=== PATIENT | female | born 1935 | race Caucasian/White ===

== ENCOUNTER 2021-04-07 22:05 | Inpatient (IN) ==
[2021-04-08 00:38] LABS: Basophils # 0.1 K/mcL (0.0-0.2); Basophils % 0.8 %; Eosinophils # 0.4 K/mcL (0.0-0.6); Hematocrit 30.6 % (35.3-44.9); Hemoglobin 9.1 g/dL (11.5-15.4); Immature Granulocytes % 1.2 % (0-4); Lymphocytes % 13.7 %; Mean Corpuscular HGB Conc 29.7 g/dL (31.6-35.5); Mean Corpuscular Hemoglobin 25.3 pg (28.0-33.3); Mean Platelet Volume 9.9 fL (9.4-12.4); Monocytes # 0.6 K/mcL (0.0-1.3); Monocytes % 8.3 %; Neutrophils # 5.3 K/mcL (1.6-8.9); Platelet Count 232 K/mcL (140-400); White Blood Count 7.4 K/mcL (4.3-11.1)
[2021-04-08 00:53] LABS: BUN/Creatinine Ratio 25 (6-26); Blood Urea Nitrogen 41 mg/dL (8-23); Calcium 8.6 mg/dL (8.6-10.3); Carbon Dioxide 31 mEq/L (23-29); Chloride 99 mEq/L (98-107); Glucose 174 mg/dL (70-105); Osmolality,Calculated 302 (280-300); Potassium 4.2 mEq/L (3.5-5.1); Sodium 139 mEq/L (136-145); Troponin I < 0.03 ng/mL (< 0.04); eGFR For African Americans 37 (> 60); eGFR For Non-African Americans 30 (> 60)
[2021-04-08] MEDS ORDERED: Ipratropium/Albuterol Neb 3 ML IH ONE (01:14)
[2021-04-08] MEDS ORDERED: Naloxone 0.4 MG/ML INJ IVP PRN (03:31)
[2021-04-08] MEDS ORDERED: Ondansetron 4 MG/2 ML VIAL IVP PRN (03:31)
[2021-04-08] MEDS ORDERED: Perflutren Lipid Microsphere 1.3 ML in 0.9 % Sodium Chloride 8.7 ML IVP PRN (03:34)
[2021-04-08] MEDS ORDERED: Dextrose Gel 15 GM/37.5 ML TUBE PO PRN ×2 (03:35)
[2021-04-08] MEDS ORDERED: D5% in Water 1,000 ML IVC PRN (03:35)
[2021-04-08] MEDS ORDERED: *HR* Dextrose 50 % in Water (Vial) 50 ML VIAL IVP PRN (03:35)
[2021-04-08] MEDS ORDERED: Ipratropium/Albuterol Neb 3 ML IH PRN (03:37)
[2021-04-08 04:57] LABS: Adenovirus Not Detected (Not Detect); Bordetella Pertussis Not Detected (Not Detect); Chlamydophila pneumoniae Not Detected (Not Detect); Coronavirus 229E Not Detected (Not Detect); Coronavirus HKU1 Not Detected (Not Detect); Coronavirus NL63 Not Detected (Not Detect); Coronavirus OC43 Not Detected (Not Detect); Human Metapneumovirus Not Detected (Not Detect); Human Rhinovirus/Enterovirus Not Detected (Not Detect); Influenza A Subtype 2009 H1 Not Detected (Not Detect); Influenza B Not Detected (Not Detect); Mycoplasma pneumoniae Not Detected (Not Detect); Parainfluenza Virus 1 Not Detected (Not Detect); Parainfluenza Virus 2 Not Detected (Not Detect); Parainfluenza Virus 3 Not Detected (Not Detect); Parainfluenza Virus 4 Not Detected (Not Detect); Respiratory Syncytial Virus Not Detected (Not Detect); SARS-CoV-2 Not Detected (Not Detect)
[2021-04-08 05:02] LABS: Basophils # 0.1 K/mcL (0.0-0.2); Basophils % 0.8 %; Eosinophils # 0.4 K/mcL (0.0-0.6); Eosinophils % 4.3 %; Hematocrit 31.4 % (35.3-44.9); Hemoglobin 9.4 g/dL (11.5-15.4); Immature Granulocytes % 1.4 % (0-4); Lymphocytes % 12.4 %; Mean Corpuscular HGB Conc 29.9 g/dL (31.6-35.5); Mean Corpuscular Hemoglobin 25.3 pg (28.0-33.3); Mean Corpuscular Volume 84.6 fL (83.0-100.0); Mean Platelet Volume 9.7 fL (9.4-12.4); Monocytes # 0.6 K/mcL (0.0-1.3); Monocytes % 7.4 %; Neutrophils # 6.1 K/mcL (1.6-8.9); Platelet Count 222 K/mcL (140-400); Red Blood Count 3.71 M/mcL (3.82-4.97); Red Cell Distribution Width 16.1 % (11.5-14.5); Segmented Neutrophils % 73.7 %; White Blood Count 8.3 K/mcL (4.3-11.1)
[2021-04-08 05:26] LABS: Albumin/Globulin Ratio 1.3 (1.1-2.2); Bilirubin,Total 0.3 mg/dL (0.3-1.0); Calcium 8.7 mg/dL (8.6-10.3); Chol/HDL Ratio 3.4 (0-4.9); Globulin 3.1 g/dL (2.4-3.5); Magnesium 2.2 mg/dL (1.6-2.6); Potassium 4.2 mEq/L (3.5-5.1); Total Protein 7.1 g/dL (6.4-8.9)
[2021-04-08 05:38] LABS: Thyroid Stimulating Hormone 2.608 mcIU/mL (0.340-5.600)
[2021-04-08] MEDS ORDERED: MethylPREDNISolone 40 MG/ML VIAL IVP SCH ×2 (08:00→18:00)
[2021-04-08] MEDS: Insulin LISPRO 300 UNITS/3 ML VIAL SUBQ SCH ×4 (08:28→20:55)
[2021-04-08] MEDS ORDERED: Iron Sucrose Complex 400 MG in 0.9 % Sodium Chloride 250 ML IVPB ONE (08:30)
[2021-04-08] MEDS ORDERED: Azithromycin 500 MG in 0.9 % Sodium Chloride 250 ML IVPB SCH (09:00)
[2021-04-08] MEDS ORDERED: cefTRIAXone 1,000 MG in 0.9 % Sodium Chloride Mini Bag 100 ML IVPB SCH (09:00)
[2021-04-08] MEDS ORDERED: Vancomycin 1,250 MG/262.5 ML IV.SOLN IVPB ONE (10:59)
[2021-04-08] MEDS: Apixaban 5 MG TABLET PO SCH ×2 (11:28→20:54)
[2021-04-08] MEDS ORDERED: Fluticasone Propionate Nasal 50 MCG/SPRAY BOTTLE NS PRN (11:29)
[2021-04-08] MEDS: GuaiFENesin/Dextromethorphan TABLET PO SCH ×2 (12:23→20:54)
[2021-04-08] MEDS: Furosemide 40 MG TABLET PO SCH (12:23)
[2021-04-08] MEDS: Cefepime HCl 1,000 MG in Water for inj. (sterile) 10 ML IVP SCH ×2 (12:31→20:56)
[2021-04-08] MEDS ORDERED: *HR* Amiodarone 200 MG TABLET PO SCH (12:45)
[2021-04-08] MEDS ORDERED: Isosorbide MONOnitrate (24 HR) 30 MG TAB.ER.24H PO SCH (12:45)
[2021-04-08] MEDS: Ipratropium/Albuterol Neb 3 ML IH SCH ×3 (15:34→22:23)
[2021-04-08] MEDS: Sacubitril/Valsartan 24/26 MG 1 TABLET PO SCH (20:54)
[2021-04-09 04:10] LABS: Basophils % 0.2 %; Hematocrit 28.7 % (35.3-44.9); Hemoglobin 8.8 g/dL (11.5-15.4); Immature Granulocytes % 1.7 % (0-4); Lymphocytes # 0.3 K/mcL (0.6-4.6); Mean Corpuscular HGB Conc 30.7 g/dL (31.6-35.5); Mean Corpuscular Hemoglobin 25.6 pg (28.0-33.3); Mean Corpuscular Volume 83.4 fL (83.0-100.0); Mean Platelet Volume 10.2 fL (9.4-12.4); Monocytes # 0.3 K/mcL (0.0-1.3); Monocytes % 2.3 %; Neutrophils # 10.7 K/mcL (1.6-8.9); Platelet Count 213 K/mcL (140-400); Red Blood Count 3.44 M/mcL (3.82-4.97); Red Cell Distribution Width 15.9 % (11.5-14.5); Segmented Neutrophils % 92.8 %; White Blood Count 11.5 K/mcL (4.3-11.1)
[2021-04-09] MEDS: Ipratropium/Albuterol Neb 3 ML IH SCH ×4 (04:26→22:39)
[2021-04-09 04:28] LABS: Calcium 8.5 mg/dL (8.6-10.3); Phosphorous 4.3 mg/dL (2.7-4.5); Potassium 4.2 mEq/L (3.5-5.1)
[2021-04-09] MEDS: tiZANidine 4 MG TABLET PO SCH (08:28)
[2021-04-09] MEDS: Apixaban 5 MG TABLET PO SCH ×2 (08:30→19:37)
[2021-04-09] MEDS: GuaiFENesin/Dextromethorphan TABLET PO SCH ×2 (08:32→19:37)
[2021-04-09] MEDS: Furosemide 40 MG TABLET PO SCH (08:32)
[2021-04-09] MEDS: Sacubitril/Valsartan 24/26 MG 1 TABLET PO SCH ×2 (08:33→19:37)
[2021-04-09] MEDS: Insulin LISPRO 300 UNITS/3 ML VIAL SUBQ SCH ×4 (08:34→19:39)
[2021-04-09] MEDS: predniSONE 20 MG TABLET PO SCH (08:57)
[2021-04-09 09:34] LABS: Hematocrit 29.1 % (35.3-44.9); Hemoglobin 8.8 g/dL (11.5-15.4)
[2021-04-09] MEDS: Cefepime HCl 1,000 MG in Water for inj. (sterile) 10 ML IVP SCH (10:30)
[2021-04-09] MEDS ORDERED: Furosemide 40 MG/4 ML VIAL IVP ONE (11:33)
[2021-04-09] MEDS ORDERED: Albumin 25% 25gram/100mL 25 GM/100 ML IV.SOLN IVPB ONE (11:33)
[2021-04-09] MEDS ORDERED: Vancomycin 1,250 MG/262.5 ML IV.SOLN IVPB SCH (13:00)
[2021-04-09] MEDS ORDERED: Furosemide 20 MG/2 ML VIAL IVP ONE (14:19)
[2021-04-09] MEDS: cephALEXin 500 MG CAPSULE PO SCH ×2 (14:19→19:38)
[2021-04-09 15:26] LABS: Estimated Average Glucose 174 mg/dl; Hemoglobin A1C 7.7 %
[2021-04-09] MEDS: Doxycycline 100 MG CAPSULE PO SCH (19:37)
[2021-04-10 00:51] LABS: Basophils % 0.2 %; Hematocrit 28.6 % (35.3-44.9); Hemoglobin 8.9 g/dL (11.5-15.4); Immature Granulocytes % 1.8 % (0-4); Lymphocytes # 0.4 K/mcL (0.6-4.6); Lymphocytes % 3.5 %; Mean Corpuscular HGB Conc 31.1 g/dL (31.6-35.5); Mean Corpuscular Hemoglobin 25.9 pg (28.0-33.3); Mean Corpuscular Volume 83.4 fL (83.0-100.0); Mean Platelet Volume 9.9 fL (9.4-12.4); Monocytes # 0.6 K/mcL (0.0-1.3); Neutrophils # 10.7 K/mcL (1.6-8.9); Platelet Count 221 K/mcL (140-400); Red Blood Count 3.43 M/mcL (3.82-4.97); Red Cell Distribution Width 16.5 % (11.5-14.5); Segmented Neutrophils % 89.5 %
[2021-04-10 01:09] LABS: Calcium 8.7 mg/dL (8.6-10.3); Magnesium 2.2 mg/dL (1.6-2.6); Phosphorous 5.1 mg/dL (2.7-4.5); Potassium 4.6 mEq/L (3.5-5.1)
[2021-04-10] MEDS: Ipratropium/Albuterol Neb 3 ML IH SCH ×4 (03:40→22:13)
[2021-04-10] MEDS ORDERED: Albumin 25% 25gram/100mL 25 GM/100 ML IV.SOLN IVPB SCH (07:00)
[2021-04-10] MEDS ORDERED: Furosemide 40 MG/4 ML VIAL IVP SCH (08:00)
[2021-04-10] MEDS: Doxycycline 100 MG CAPSULE PO SCH ×2 (08:35→19:43)
[2021-04-10] MEDS: predniSONE 20 MG TABLET PO SCH (08:35)
[2021-04-10] MEDS: cephALEXin 500 MG CAPSULE PO SCH ×3 (08:35→19:43)
[2021-04-10] MEDS: Sacubitril/Valsartan 24/26 MG 1 TABLET PO SCH ×2 (08:35→19:43)
[2021-04-10] MEDS: GuaiFENesin/Dextromethorphan TABLET PO SCH ×2 (08:35→19:42)
[2021-04-10] MEDS: tiZANidine 4 MG TABLET PO SCH (08:35)
[2021-04-10] MEDS: Apixaban 5 MG TABLET PO SCH ×2 (08:36→19:43)
[2021-04-10] MEDS: Insulin LISPRO 300 UNITS/3 ML VIAL SUBQ SCH ×4 (08:37→19:51)
[2021-04-10 17:13] LABS: Uric Acid 7.9 mg/dL (2.3-7.6)
[2021-04-11 02:11] LABS: Basophils % 0.1 %; Hematocrit 28.7 % (35.3-44.9); Hemoglobin 8.7 g/dL (11.5-15.4); Immature Granulocytes % 2.3 % (0-4); Lymphocytes # 0.3 K/mcL (0.6-4.6); Mean Corpuscular HGB Conc 30.3 g/dL (31.6-35.5); Mean Corpuscular Hemoglobin 25.9 pg (28.0-33.3); Mean Corpuscular Volume 85.4 fL (83.0-100.0); Monocytes # 0.6 K/mcL (0.0-1.3); Monocytes % 5.5 %; Neutrophils # 9.7 K/mcL (1.6-8.9); Platelet Count 204 K/mcL (140-400); Red Blood Count 3.36 M/mcL (3.82-4.97); Red Cell Distribution Width 16.6 % (11.5-14.5); Segmented Neutrophils % 89.1 %; White Blood Count 10.9 K/mcL (4.3-11.1)
[2021-04-11 02:24] LABS: Calcium 8.6 mg/dL (8.6-10.3)
[2021-04-11] MEDS: Ipratropium/Albuterol Neb 3 ML IH SCH ×4 (03:58→21:40)
[2021-04-11] MEDS: Insulin LISPRO 300 UNITS/3 ML VIAL SUBQ SCH ×4 (08:11→20:10)
[2021-04-11] MEDS: GuaiFENesin/Dextromethorphan TABLET PO SCH ×2 (08:11→20:10)
[2021-04-11] MEDS: Sacubitril/Valsartan 24/26 MG 1 TABLET PO SCH ×2 (08:11→20:11)
[2021-04-11] MEDS: Doxycycline 100 MG CAPSULE PO SCH ×2 (08:11→20:11)
[2021-04-11] MEDS: Apixaban 5 MG TABLET PO SCH ×2 (08:12→20:10)
[2021-04-11] MEDS: cephALEXin 500 MG CAPSULE PO SCH ×3 (08:12→20:11)
[2021-04-11] MEDS: predniSONE 20 MG TABLET PO SCH (08:13)
[2021-04-11] MEDS: tiZANidine 4 MG TABLET PO SCH (08:14)
[2021-04-11 10:00] LABS: Sodium, Urine 62.1 mEq/L
[2021-04-12 03:27] LABS: Basophils % 0.3 %; Hematocrit 29.3 % (35.3-44.9); Hemoglobin 8.9 g/dL (11.5-15.4); Immature Granulocytes % 3.9 % (0-4); Lymphocytes # 0.3 K/mcL (0.6-4.6); Lymphocytes % 2.6 %; Mean Corpuscular HGB Conc 30.4 g/dL (31.6-35.5); Mean Corpuscular Hemoglobin 25.9 pg (28.0-33.3); Mean Corpuscular Volume 85.4 fL (83.0-100.0); Mean Platelet Volume 10.6 fL (9.4-12.4); Monocytes # 0.8 K/mcL (0.0-1.3); Monocytes % 6.7 %; Neutrophils # 10.6 K/mcL (1.6-8.9); Platelet Count 234 K/mcL (140-400); Red Blood Count 3.43 M/mcL (3.82-4.97); Red Cell Distribution Width 16.7 % (11.5-14.5); Segmented Neutrophils % 86.5 %; White Blood Count 12.3 K/mcL (4.3-11.1)
[2021-04-12] MEDS: Ipratropium/Albuterol Neb 3 ML IH SCH ×4 (03:41→22:56)
[2021-04-12 03:45] LABS: Calcium 8.7 mg/dL (8.6-10.3); Potassium 5.3 mEq/L (3.5-5.1)
[2021-04-12] MEDS: GuaiFENesin/Dextromethorphan TABLET PO SCH ×2 (07:55→20:46)
[2021-04-12] MEDS: Apixaban 5 MG TABLET PO SCH ×2 (07:55→20:46)
[2021-04-12] MEDS: cephALEXin 500 MG CAPSULE PO SCH ×3 (07:55→20:46)
[2021-04-12] MEDS: Sacubitril/Valsartan 24/26 MG 1 TABLET PO SCH ×2 (07:55→20:46)
[2021-04-12] MEDS: Insulin LISPRO 300 UNITS/3 ML VIAL SUBQ SCH ×4 (07:55→20:49)
[2021-04-12] MEDS: Doxycycline 100 MG CAPSULE PO SCH ×2 (07:55→20:45)
[2021-04-12] MEDS: tiZANidine 4 MG TABLET PO SCH (07:56)
[2021-04-12] MEDS: predniSONE 20 MG TABLET PO SCH (07:56)
[2021-04-12 11:39] LABS: Bilirubin,Urine Negative (Negative); Blood,Urine Negative (Negative); Clarity,Urine Clear (Clear); Color,Urine Colorless (Yellow); Glucose,Urine (UA) 50 mg/dL (Normal); Ketones,Urine Negative (Negative); Leukocyte Esterase,Urine Trace (Negative); Nitrite,Urine Negative (Negative); Protein,Urine Trace mg/dL (Neg-Trace); RBC,Urine 0-3 per hpf (0-3); Specific Gravity,Urine 1.015 (1.010-1.025); Squamous Epithelial Cell,Urine Few per hpf (None-Few); Urobilinogen,Urine Normal (Normal); WBC,Urine 0-3 per hpf (0-3)
[2021-04-12] MEDS: Acetaminophen 325 MG TABLET PO PRN (19:02)
[2021-04-13] MEDS: Ipratropium/Albuterol Neb 3 ML IH SCH ×4 (03:43→22:59)
[2021-04-13] MEDS: Acetaminophen 325 MG TABLET PO PRN (05:05)
[2021-04-13] MEDS: Apixaban 5 MG TABLET PO SCH ×2 (07:13→19:49)
[2021-04-13] MEDS: tiZANidine 4 MG TABLET PO SCH (07:13)
[2021-04-13] MEDS: Doxycycline 100 MG CAPSULE PO SCH ×2 (07:13→19:48)
[2021-04-13] MEDS: GuaiFENesin/Dextromethorphan TABLET PO SCH ×2 (07:13→19:48)
[2021-04-13] MEDS: predniSONE 20 MG TABLET PO SCH (07:13)
[2021-04-13] MEDS: Sacubitril/Valsartan 24/26 MG 1 TABLET PO SCH ×2 (07:13→19:49)
[2021-04-13] MEDS: cephALEXin 500 MG CAPSULE PO SCH ×3 (07:13→19:48)
[2021-04-13] MEDS: Insulin LISPRO 300 UNITS/3 ML VIAL SUBQ SCH ×4 (07:14→19:54)
[2021-04-13 07:24] LABS: Basophils # 0.1 K/mcL (0.0-0.2); Basophils % 0.7 %; Eosinophils # 0.2 K/mcL (0.0-0.6); Eosinophils % 2.2 %; Hematocrit 30.1 % (35.3-44.9); Hemoglobin 8.9 g/dL (11.5-15.4); Immature Granulocytes % 4.5 % (0-4); Lymphocytes # 0.9 K/mcL (0.6-4.6); Lymphocytes % 8.3 %; Mean Corpuscular HGB Conc 29.6 g/dL (31.6-35.5); Mean Corpuscular Hemoglobin 25.4 pg (28.0-33.3); Mean Platelet Volume 10.4 fL (9.4-12.4); Monocytes # 0.9 K/mcL (0.0-1.3); Monocytes % 8.1 %; Platelet Count 213 K/mcL (140-400); Red Cell Distribution Width 16.8 % (11.5-14.5); Segmented Neutrophils % 76.2 %; White Blood Count 10.5 K/mcL (4.3-11.1)
[2021-04-13 07:43] LABS: Calcium 8.8 mg/dL (8.6-10.3); Potassium 5.2 mEq/L (3.5-5.1)
[2021-04-13] MEDS ORDERED: SODIUM ZIRCONIUM CYCLOSILICATE 5 GM POWD.PACK PO ONE ×2 (17:38→18:26)
[2021-04-14] MEDS: Ipratropium/Albuterol Neb 3 ML IH SCH ×2 (04:03→11:16)
[2021-04-14 07:12] LABS: Potassium 4.9 mEq/L (3.5-5.1)
[2021-04-14] MEDS: cephALEXin 500 MG CAPSULE PO SCH (07:44)
[2021-04-14] MEDS: Sacubitril/Valsartan 24/26 MG 1 TABLET PO SCH (07:44)
[2021-04-14] MEDS: Insulin LISPRO 300 UNITS/3 ML VIAL SUBQ SCH ×2 (07:44→11:48)
[2021-04-14] MEDS: GuaiFENesin/Dextromethorphan TABLET PO SCH (07:44)
[2021-04-14] MEDS: Apixaban 5 MG TABLET PO SCH (07:45)
[2021-04-14] MEDS: tiZANidine 4 MG TABLET PO SCH (07:45)
[2021-04-14] MEDS: predniSONE 20 MG TABLET PO SCH (07:45)
[2021-04-14] MEDS: Doxycycline 100 MG CAPSULE PO SCH (07:45)
[2021-04-14 08:04] LABS: Hematocrit 33.5 % (35.3-44.9); Mean Corpuscular HGB Conc 29.9 g/dL (31.6-35.5); Mean Corpuscular Hemoglobin 25.4 pg (28.0-33.3); Mean Platelet Volume 9.5 fL (9.4-12.4); Nucleated Red Blood Cells 0.2 /100 WBC (0); Platelet Count 225 K/mcL (140-400); Red Blood Count 3.94 M/mcL (3.82-4.97); Red Cell Distribution Width 16.8 % (11.5-14.5); White Blood Count 12.4 K/mcL (4.3-11.1)
[2021-04-14 08:49] LABS: Lymphocytes # 2.7 K/mcL (0.6-4.6); Monocytes # 1.2 K/mcL (0.0-1.3); Neutrophils # 8.4 K/mcL (1.6-8.9); Platelet Estimate Normal (Normal)
[2021-04-14 11:37] VITALS: BP 114/68
== END 2021-04-14 14:09 | DRG 602 ==
LOC: EMEROOARM 22:05 → 3BNU 22:05 → SUATTDRO 04-08 02:23 → 3BNU 04-08 03:15 → SUATTDRO 04-09 14:20
PROVIDERS: ADMIT Internal Medicine; ATTEND Registered Nurse

== ENCOUNTER 2021-08-25 16:44 | Inpatient (IN) ==
[2021-08-25 17:26] LABS: Basophils % 0.5 %; Eosinophils # 0.4 K/mcL (0.0-0.6); Eosinophils % 5.4 %; Hematocrit 34.2 % (35.3-44.9); Hemoglobin 10.6 g/dL (11.5-15.4); Immature Granulocytes % 0.5 % (0-4); Lymphocytes # 0.8 K/mcL (0.6-4.6); Lymphocytes % 11.1 %; Mean Corpuscular Hemoglobin 26.6 pg (28.0-33.3); Mean Corpuscular Volume 85.7 fL (83.0-100.0); Mean Platelet Volume 10.5 fL (9.4-12.4); Monocytes # 0.6 K/mcL (0.0-1.3); Monocytes % 8.2 %; Neutrophils # 5.4 K/mcL (1.6-8.9); Platelet Count 203 K/mcL (140-400); Red Blood Count 3.99 M/mcL (3.82-4.97); Red Cell Distribution Width 15.6 % (11.5-14.5); Segmented Neutrophils % 74.3 %; White Blood Count 7.3 K/mcL (4.3-11.1)
[2021-08-25 17:37] LABS: INR 1.7; Prothrombin Time 18.9 Seconds (9.4-12.1)
[2021-08-25 17:47] LABS: Alanine Aminotransferase 11 Units/L (7-52); Albumin/Globulin Ratio 1.3 (1.1-2.2); Alkaline Phosphatase 58 Units/L (34-104); Aspartate Amino Transferase 25 Units/L (13-39); BUN/Creatinine Ratio 23 (6-26); Bilirubin,Total 0.3 mg/dL (0.3-1.0); Blood Urea Nitrogen 81 mg/dL (8-23); Calcium 8.6 mg/dL (8.6-10.3); Carbon Dioxide 24 mEq/L (23-29); Chloride 98 mEq/L (98-107); Glucose 153 mg/dL (70-105); Magnesium 1.9 mg/dL (1.6-2.6); Osmolality,Calculated 301 (280-300); Potassium 5.8 mEq/L (3.5-5.1); Sodium 132 mEq/L (136-145); eGFR For African Americans 15 (> 60); eGFR For Non-African Americans 12 (> 60)
[2021-08-25 17:48] LABS: Troponin I < 0.03 ng/mL (< 0.04)
[2021-08-25] MEDS ORDERED: 0.9 % Sodium Chloride 1,000 ML IV ONE ×2 (17:54→19:47)
[2021-08-25 18:02] LABS: Influenza A PCR Negative (Negative); Influenza B PCR Negative (Negative); Resp. Syncytial Virus PCR Negative (Negative)
[2021-08-25 18:02] LABS: Thyroid Stimulating Hormone 1.592 mcIU/mL (0.340-5.600)
[2021-08-25 18:08] LABS: SARS-CoV-2 by PCR (In House) Negative (Negative)
[2021-08-25 19:47] LABS: Bacteria,Urine Many per hpf (None-Few); Bilirubin,Urine Negative (Negative); Blood,Urine Negative (Negative); Clarity,Urine Turbid (Clear); Color,Urine Light-Yellow (Yellow); Glucose,Urine (UA) Normal (Normal); Hyaline Casts,Urine Few per lpf (None Seen); Ketones,Urine Negative (Negative); Leukocyte Esterase,Urine Large (Negative); Mucus,Urine Few per lpf (None-Few); Nitrite,Urine Positive (Negative); Protein,Urine Negative (Neg-Trace); RBC,Urine 0-3 per hpf (0-3); Specific Gravity,Urine 1.011 (1.010-1.025); Squamous Epithelial Cell,Urine Few per hpf (None-Few); Transitional Epi Cells,Urine Moderate per hpf (None-Few); Urobilinogen,Urine Normal (Normal)
[2021-08-25] MEDS ORDERED: Insulin Human Regular 5 UNIT in 0.9 % Sodium Chloride 10 ML IV ONE (19:47)
[2021-08-25] MEDS ORDERED: *HR* Dextrose 50 % in Water (Syg) 50 ML SYRINGE IVP ONE (19:47)
[2021-08-25] MEDS ORDERED: Calcium Gluconate 1,000 MG/10 ML VIAL IVP ONE (19:48)
[2021-08-25] MEDS ORDERED: Calcium Gluconate 1gm/50mL BAG IVPB ONE (20:00)
[2021-08-25] MEDS ORDERED: cefTRIAXone 1,000 MG in Water for inj. (sterile) 10 ML IVP ONE (20:12)
[2021-08-25] MEDS ORDERED: Naloxone 0.4 MG/ML INJ IVP PRN (21:42)
[2021-08-25] MEDS ORDERED: Melatonin 3 MG TABLET PO PRN (21:42)
[2021-08-25 22:43] LABS: Calcium 7.9 mg/dL (8.6-10.3); Potassium 4.7 mEq/L (3.5-5.1)
[2021-08-25] MEDS ORDERED: *HR* Dextrose 50 % in Water (Syg) 50 ML SYRINGE IVP PRN (22:45)
[2021-08-25] MEDS ORDERED: D5% in Water 1,000 ML IVC PRN (22:45)
[2021-08-25] MEDS ORDERED: Dextrose Gel 15 GM/37.5 ML TUBE PO PRN ×2 (22:45)
[2021-08-25] MEDS ORDERED: levoFLOXacin 750 MG/150 ML 750 MG/150 ML BAG IVPB ONE (23:45)
[2021-08-26 05:48] LABS: Basophils % 0.5 %; Eosinophils # 0.5 K/mcL (0.0-0.6); Eosinophils % 6.8 %; Hemoglobin 9.6 g/dL (11.5-15.4); Immature Granulocytes % 0.6 % (0-4); Lymphocytes # 0.9 K/mcL (0.6-4.6); Lymphocytes % 13.6 %; Mean Corpuscular Hemoglobin 25.7 pg (28.0-33.3); Mean Corpuscular Volume 85.8 fL (83.0-100.0); Mean Platelet Volume 10.5 fL (9.4-12.4); Monocytes # 0.6 K/mcL (0.0-1.3); Monocytes % 8.6 %; Neutrophils # 4.6 K/mcL (1.6-8.9); Platelet Count 158 K/mcL (140-400); Red Blood Count 3.73 M/mcL (3.82-4.97); Red Cell Distribution Width 15.4 % (11.5-14.5); Segmented Neutrophils % 69.9 %; White Blood Count 6.6 K/mcL (4.3-11.1)
[2021-08-26 06:04] LABS: Calcium 7.9 mg/dL (8.6-10.3); Magnesium 1.7 mg/dL (1.6-2.6); Potassium 4.7 mEq/L (3.5-5.1)
[2021-08-26] MEDS: Apixaban 2.5 MG TABLET PO SCH ×2 (07:50→20:24)
[2021-08-26] MEDS: Insulin LISPRO 300 UNITS/3 ML VIAL SUBQ SCH ×4 (09:19→21:56)
[2021-08-26] MEDS ORDERED: Ipratropium/Albuterol Neb 3 ML IH PRN (17:04)
[2021-08-26] MEDS: *HR* OxyCODONE/APAP 5/325 TABLET PO PRN (19:40)
[2021-08-26] MEDS: Metoprolol XL (24 HR) Succ 25 MG TAB.ER.24H PO SCH (20:23)
[2021-08-26] MEDS: QUEtiapine Fumarate 25 MG TABLET PO SCH (20:23)
[2021-08-26] MEDS: Primidone 50 MG TABLET PO SCH (20:24)
[2021-08-27] MEDS: *HR* OxyCODONE/APAP 5/325 TABLET PO PRN (03:45)
[2021-08-27 07:04] LABS: Albumin 3.6 g/dL (3.5-5.7); Albumin/Globulin Ratio 1.4 (1.1-2.2); Bilirubin,Indirect 0.2 mg/dL (0.0-1.0); Bilirubin,Total 0.2 mg/dL (0.3-1.0); Calcium 8.7 mg/dL (8.6-10.3); Globulin 2.5 g/dL (2.4-3.5); Magnesium 1.7 mg/dL (1.6-2.6); Potassium 4.2 mEq/L (3.5-5.1); Total Protein 6.1 g/dL (6.4-8.9)
[2021-08-27 07:21] LABS: Folate 7.7 ng/mL (3.0-16.0)
[2021-08-27] MEDS ORDERED: Cyanocobalamin (B-12) 1,000 MCG/ML VIAL SQ ONE (07:32)
[2021-08-27] MEDS: Insulin LISPRO 300 UNITS/3 ML VIAL SUBQ SCH ×4 (08:35→21:31)
[2021-08-27] MEDS ORDERED: Iron Sucrose Complex 250 MG in 0.9 % Sodium Chloride 250 ML IVPB SCH (09:00)
[2021-08-27] MEDS: Isosorbide MONOnitrate (24 HR) 30 MG TAB.ER.24H PO SCH (09:21)
[2021-08-27] MEDS: Apixaban 2.5 MG TABLET PO SCH ×2 (09:21→21:42)
[2021-08-27] MEDS: Multivit/Ca/Min/Fe/FA 1 TAB TABLET PO SCH (09:21)
[2021-08-27] MEDS: tiZANidine 4 MG TABLET PO SCH (09:21)
[2021-08-27] MEDS: polyethylene glycoL 3350 17 GM POWD.PACK PO SCH (09:22)
[2021-08-27] MEDS: Metoprolol XL (24 HR) Succ 25 MG TAB.ER.24H PO SCH ×2 (09:22→21:45)
[2021-08-27] MEDS: *HR* Amiodarone 200 MG TABLET PO SCH (09:23)
[2021-08-27 09:42] LABS: Basophils % 0.5 %; Eosinophils # 0.5 K/mcL (0.0-0.6); Eosinophils % 8.3 %; Hemoglobin 10.2 g/dL (11.5-15.4); Immature Granulocytes % 0.8 % (0-4); Lymphocytes # 0.8 K/mcL (0.6-4.6); Lymphocytes % 13.4 %; Mean Corpuscular HGB Conc 30.9 g/dL (31.6-35.5); Mean Corpuscular Hemoglobin 26.4 pg (28.0-33.3); Mean Corpuscular Volume 85.5 fL (83.0-100.0); Mean Platelet Volume 10.4 fL (9.4-12.4); Monocytes # 0.5 K/mcL (0.0-1.3); Monocytes % 7.5 %; Neutrophils # 4.3 K/mcL (1.6-8.9); Platelet Count 160 K/mcL (140-400); Red Blood Count 3.86 M/mcL (3.82-4.97); Red Cell Distribution Width 15.3 % (11.5-14.5); Segmented Neutrophils % 69.5 %; White Blood Count 6.3 K/mcL (4.3-11.1)
[2021-08-27] MEDS ORDERED: Ringers Solution, Lactated 1,000 ML ONE (11:12)
[2021-08-27] MEDS: Ringers Solution, Lactated 1,000 ML IVC ONE ×2 (11:30→12:18)
[2021-08-27] MEDS ORDERED: Ringers Solution, Lactated 1,000 ML IVC ONE ×2 (12:06→12:15)
[2021-08-27] MEDS: Albumin 25% 25gram/100mL 25 GM/100 ML IV.SOLN IVPB SCH ×2 (12:12→16:53)
[2021-08-27] MEDS: Primidone 50 MG TABLET PO SCH ×2 (12:28→21:41)
[2021-08-27 12:34] LABS: Hematocrit 29.5 % (35.3-44.9); Hemoglobin 8.8 g/dL (11.5-15.4)
[2021-08-27] MEDS ORDERED: cefTRIAXone 1,000 MG in Water for inj. (sterile) 10 ML IVP SCH (13:00)
[2021-08-27] MEDS: QUEtiapine Fumarate 25 MG TABLET PO SCH (21:43)
[2021-08-27] MEDS ORDERED: levoFLOXacin 500 MG/100 ML 500 MG/100 ML BAG IVPB SCH (22:00)
[2021-08-28] MEDS: Albumin 25% 25gram/100mL 25 GM/100 ML IV.SOLN IVPB SCH ×2 (00:56→10:14)
[2021-08-28 07:10] LABS: Basophils % 0.3 %; Eosinophils # 0.6 K/mcL (0.0-0.6); Eosinophils % 8.6 %; Hematocrit 29.3 % (35.3-44.9); Hemoglobin 8.9 g/dL (11.5-15.4); Immature Granulocytes % 0.7 % (0-4); Mean Corpuscular HGB Conc 30.4 g/dL (31.6-35.5); Mean Corpuscular Hemoglobin 26.5 pg (28.0-33.3); Mean Corpuscular Volume 87.2 fL (83.0-100.0); Mean Platelet Volume 11.2 fL (9.4-12.4); Monocytes # 0.4 K/mcL (0.0-1.3); Monocytes % 6.3 %; Neutrophils # 4.8 K/mcL (1.6-8.9); Platelet Count 154 K/mcL (140-400); Red Blood Count 3.36 M/mcL (3.82-4.97); Red Cell Distribution Width 15.5 % (11.5-14.5); Segmented Neutrophils % 69.1 %; White Blood Count 6.9 K/mcL (4.3-11.1)
[2021-08-28 07:27] LABS: Calcium 8.8 mg/dL (8.6-10.3); Magnesium 1.6 mg/dL (1.6-2.6); Potassium 4.4 mEq/L (3.5-5.1)
[2021-08-28] MEDS: Insulin LISPRO 300 UNITS/3 ML VIAL SUBQ SCH ×4 (09:17→20:32)
[2021-08-28] MEDS: Apixaban 2.5 MG TABLET PO SCH ×2 (10:15→20:32)
[2021-08-28] MEDS: Multivit/Ca/Min/Fe/FA 1 TAB TABLET PO SCH (10:15)
[2021-08-28] MEDS: *HR* Amiodarone 200 MG TABLET PO SCH (10:15)
[2021-08-28] MEDS: Isosorbide MONOnitrate (24 HR) 30 MG TAB.ER.24H PO SCH (10:15)
[2021-08-28] MEDS: tiZANidine 4 MG TABLET PO SCH (10:15)
[2021-08-28] MEDS: polyethylene glycoL 3350 17 GM POWD.PACK PO SCH (10:21)
[2021-08-28] MEDS: Primidone 50 MG TABLET PO SCH ×2 (12:40→20:32)
[2021-08-28] MEDS: QUEtiapine Fumarate 25 MG TABLET PO SCH (20:32)
[2021-08-28] MEDS: Lactobacillus 1 EACH CAP.SPRINK PO SCH (20:32)
[2021-08-29] MEDS: Insulin LISPRO 300 UNITS/3 ML VIAL SUBQ SCH ×4 (08:39→20:45)
[2021-08-29] MEDS: Lactobacillus 1 EACH CAP.SPRINK PO SCH ×2 (09:33→20:45)
[2021-08-29] MEDS: Multivit/Ca/Min/Fe/FA 1 TAB TABLET PO SCH (09:33)
[2021-08-29] MEDS: tiZANidine 4 MG TABLET PO SCH (09:34)
[2021-08-29] MEDS: *HR* Amiodarone 200 MG TABLET PO SCH (09:34)
[2021-08-29] MEDS: Metoprolol XL (24 HR) Succ 25 MG TAB.ER.24H PO SCH (09:34)
[2021-08-29] MEDS: polyethylene glycoL 3350 17 GM POWD.PACK PO SCH (09:34)
[2021-08-29] MEDS: Isosorbide MONOnitrate (24 HR) 30 MG TAB.ER.24H PO SCH (09:34)
[2021-08-29] MEDS: Apixaban 2.5 MG TABLET PO SCH ×2 (09:34→20:45)
[2021-08-29] MEDS ORDERED: polyethylene glycoL 3350 17 GM POWD.PACK PO PRN (11:56)
[2021-08-29] MEDS: Primidone 50 MG TABLET PO SCH ×2 (13:59→20:45)
[2021-08-29] MEDS: QUEtiapine Fumarate 25 MG TABLET PO SCH (20:45)
[2021-08-30 06:20] LABS: Basophils % 0.5 %; Eosinophils # 0.4 K/mcL (0.0-0.6); Hemoglobin 8.6 g/dL (11.5-15.4); Immature Granulocytes % 0.7 % (0-4); Lymphocytes # 0.8 K/mcL (0.6-4.6); Lymphocytes % 12.5 %; Mean Corpuscular HGB Conc 29.7 g/dL (31.6-35.5); Mean Corpuscular Hemoglobin 25.7 pg (28.0-33.3); Mean Corpuscular Volume 86.8 fL (83.0-100.0); Mean Platelet Volume 10.6 fL (9.4-12.4); Monocytes # 0.4 K/mcL (0.0-1.3); Monocytes % 6.2 %; Neutrophils # 4.4 K/mcL (1.6-8.9); Platelet Count 141 K/mcL (140-400); Red Blood Count 3.34 M/mcL (3.82-4.97); Red Cell Distribution Width 15.6 % (11.5-14.5); Segmented Neutrophils % 73.1 %
[2021-08-30 06:40] LABS: Calcium 8.9 mg/dL (8.6-10.3); Potassium 4.3 mEq/L (3.5-5.1)
[2021-08-30] MEDS: Insulin LISPRO 300 UNITS/3 ML VIAL SUBQ SCH ×4 (08:39→21:25)
[2021-08-30 08:43] LABS: Magnesium 1.6 mg/dL (1.6-2.6)
[2021-08-30] MEDS: Isosorbide MONOnitrate (24 HR) 30 MG TAB.ER.24H PO SCH (08:47)
[2021-08-30] MEDS: Multivit/Ca/Min/Fe/FA 1 TAB TABLET PO SCH (08:47)
[2021-08-30] MEDS: *HR* Amiodarone 200 MG TABLET PO SCH (08:48)
[2021-08-30] MEDS: Lactobacillus 1 EACH CAP.SPRINK PO SCH ×2 (08:48→21:25)
[2021-08-30] MEDS: Apixaban 2.5 MG TABLET PO SCH ×2 (08:48→21:25)
[2021-08-30] MEDS: Metoprolol XL (24 HR) Succ 25 MG TAB.ER.24H PO SCH (08:48)
[2021-08-30] MEDS: tiZANidine 4 MG TABLET PO SCH (08:48)
[2021-08-30] MEDS ORDERED: Ringers Solution, Lactated 1,000 ML IVC ONE (12:20)
[2021-08-30] MEDS: Primidone 50 MG TABLET PO SCH ×2 (13:42→21:25)
[2021-08-30] MEDS: QUEtiapine Fumarate 25 MG TABLET PO SCH (21:25)
[2021-08-31 04:06] LABS: Basophils % 0.6 %; Eosinophils # 0.4 K/mcL (0.0-0.6); Eosinophils % 6.3 %; Hematocrit 27.2 % (35.3-44.9); Hemoglobin 8.3 g/dL (11.5-15.4); Immature Granulocytes % 0.6 % (0-4); Immature Platelets 3.5 % (1.1-6.1); Lymphocytes # 0.9 K/mcL (0.6-4.6); Lymphocytes % 13.6 %; Mean Corpuscular HGB Conc 30.5 g/dL (31.6-35.5); Mean Corpuscular Hemoglobin 26.1 pg (28.0-33.3); Mean Corpuscular Volume 85.5 fL (83.0-100.0); Mean Platelet Volume 10.8 fL (9.4-12.4); Monocytes # 0.4 K/mcL (0.0-1.3); Monocytes % 6.6 %; Neutrophils # 4.9 K/mcL (1.6-8.9); Platelet Count 140 K/mcL (140-400); Red Blood Count 3.18 M/mcL (3.82-4.97); Red Cell Distribution Width 15.5 % (11.5-14.5); Segmented Neutrophils % 72.3 %; White Blood Count 6.7 K/mcL (4.3-11.1)
[2021-08-31 04:19] LABS: Magnesium 1.6 mg/dL (1.6-2.6); Potassium 4.4 mEq/L (3.5-5.1)
[2021-08-31] MEDS: Insulin LISPRO 300 UNITS/3 ML VIAL SUBQ SCH ×2 (08:40→11:48)
[2021-08-31] MEDS ORDERED: Metoprolol XL (24 HR) Succ 25 MG TAB.ER.24H PO SCH (09:00)
[2021-08-31] MEDS: Isosorbide MONOnitrate (24 HR) 30 MG TAB.ER.24H PO SCH (09:07)
[2021-08-31] MEDS: *HR* Amiodarone 200 MG TABLET PO SCH (09:07)
[2021-08-31] MEDS: Lactobacillus 1 EACH CAP.SPRINK PO SCH (09:07)
[2021-08-31] MEDS: Apixaban 2.5 MG TABLET PO SCH (09:07)
[2021-08-31] MEDS: Multivit/Ca/Min/Fe/FA 1 TAB TABLET PO SCH (09:07)
[2021-08-31] MEDS: Primidone 50 MG TABLET PO SCH (11:48)
[2021-08-31 13:54] VITALS: BP 137/69; PULSE 69; TEMP 97.6; O2SAT 100
[2021-08-31] MEDS ORDERED: FLU Vac QV 21-22 (6Month+)/PF 0.5 ML SYRINGE IM ONE (13:54)
== END 2021-08-31 14:50 | disposition home health service (06) | DRG 683 ==
LOC: 3ANU 16:44 → EMEROOARM 16:44 → SUATTDRO 21:42 → 3ANU 22:14
PROVIDERS: ADMIT Student in an Organized Health Care Education/Training Program; ATTEND Pharmacist